=== PATIENT | female | born 1950 | race Caucasian/White ===

== ENCOUNTER 2017-08-17 06:59 | Inpatient (IN) ==
[2017-08-13 17:20] LABS: Appearance,Urine CLEAR; Bacteria,Urine 0 /hpf (0); Bilirubin,Urine NEG (NEG); Color,Urine YELLOW; Glucose,Urine (UA) NEGATIVE (NEG); Leukocyte Esterase,Urine 25 /uL (NEG); Mucus,Urine FEW /hpf (0); Nitrate,Urine NEG (NEG); Protein,Urine NEG (NEG); Specific Gravity,Urine 1.015 (1.000-1.035); Urine Blood NEG mg/dL (<0.03); Urine Hyaline Cast 4 /lpf (0-2); Urine RBC 0 /hpf (0-1); Urine Squamous Epithelial Cell 1 /hpf (0-4); Urine WBC 6 /hpf (0-4); Urobilinogen,Urine NEG (NEG)
[2017-08-13 18:19] LABS: Basophils # (Auto) 0.1 K/mcL (0.0-0.3); Basophils % (Auto) 1.2 % (0.0-2.0); Eosinophils # (Auto) 0.1 K/mcL (0.0-0.7); Eosinophils % (Auto) 2.2 % (0.0-7.0); Granulocytes % (Auto) 59.3 % (38.0-78.0); Lymphocytes # (Auto) 1.6 K/mcL (1.5-4.8); Mean Cell Volume 95.4 fL (80.0-100.0); Mean Corpuscular HGB Conc 33.7 g/dL (31.0-36.0); Mean Corpuscular Hemoglobin 32.1 pg (26.0-34.0); Monocytes # (Auto) 0.3 K/mcL (0.1-0.9); Monocytes % (Auto) 6.3 % (1.0-12.0); Platelet Count 210 K/mcL (140-440); RBC 4.56 M/mcL (4.00-5.20); Red Cell Distribution Width 14.7 % (11.5-14.5)
[2017-08-13 18:26] LABS: Blood Urea Nitrogen 18 mg/dl (8-23)
[~2017-08-17 06:59] MED LIST: ACETAMINOPHEN 500 MG TABLET PO SCH; CELECOXIB 200 MG CAPSULE PO SCH; PREGABALIN 75 MG CAPSULE PO SCH; ceFAZolin 1 GM VIAL IV SCH; oxyCODONE 10 MG TAB.ER.12H PO SCH
[2017-08-17] MEDS ORDERED: 0.9 % SODIUM CHLORIDE 250 ML IV SCH (07:00)
[2017-08-17] MEDS ORDERED: KETOROLAC 30 MG, ROPIVACAINE HCL/PF 49.5 ML, EPINEPHrine 0.5 MG, 0.9 % SODIUM CHLORIDE ... IJ ONE (08:30)
[2017-08-17 08:33] LABS: Appearance,Urine CLEAR; Bilirubin,Urine NEG (NEG); Color,Urine YELLOW; Glucose,Urine (UA) NEGATIVE (NEG); Leukocyte Esterase,Urine NEG /uL (NEG); Nitrate,Urine NEG (NEG); Protein,Urine NEG (NEG); Specific Gravity,Urine 1.014 (1.000-1.035); Urine Blood NEG mg/dL (<0.03); Urobilinogen,Urine NEG (NEG)
[2017-08-17] MEDS ORDERED: ONDANSETRON 4 MG/2 ML VIAL ONE (09:18)
[2017-08-17] MEDS ORDERED: PROPOFOL 200 MG/20 ML VIAL IV ONE (09:18)
[2017-08-17] MEDS ORDERED: LIDOCAINE HCL/PF 100 MG/5 ML SYRINGE IV ONE (09:18)
[2017-08-17] MEDS ORDERED: KETAMINE 10 MG/ML ML ONE (09:18)
[2017-08-17] MEDS ORDERED: MIDAZOLAM 2 MG/2 ML VIAL ONE (09:18)
[2017-08-17] MEDS ORDERED: GLYCOPYRROLATE 0.2 MG/ML VIAL IV ONE (09:18)
[2017-08-17] MEDS ORDERED: GENTAMICIN SULFATE 800 MG/20 ML VIAL IR ONE (10:09)
[2017-08-17] MEDS ORDERED: HYDROmorphone 2 MG/ML SYRINGE IV PRN (10:49)
[2017-08-17] MEDS ORDERED: TRANEXAMIC ACID 1,000 MG/10 ML VIAL IV SCH (10:49)
[2017-08-17] MEDS ORDERED: ACETAMINOPHEN 325 MG TABLET PO PRN (10:49)
[2017-08-17] MEDS ORDERED: MAGNESIUM HYDROXIDE 30 ML ORAL.SUSP PO PRN (10:49)
[2017-08-17] MEDS ORDERED: BISACODYL 10 MG SUPP.RECT PR PRN (10:49)
[2017-08-17] MEDS ORDERED: ONDANSETRON 4 MG/2 ML VIAL IV PRN ×2 (10:49→10:54)
[2017-08-17] MEDS ORDERED: POLYETHYLENE GLYCOL 3350 17 GM PACKET PO PRN (10:49)
[2017-08-17] MEDS ORDERED: BENZOCAINE/MENTHOL 1 LOZENGE PO PRN ×2 (10:49→10:54)
[2017-08-17] MEDS ORDERED: FLEETS ADULT ENEMA PR PRN (10:49)
[2017-08-17] MEDS ORDERED: IPRATROPIUM/ALBUTEROL 3 ML AMPUL.NEB NEB PRN (10:54)
[2017-08-17] MEDS ORDERED: METOPROLOL TARTRATE 5 MG/5 ML VIAL IV PRN (10:54)
[2017-08-17] MEDS ORDERED: METHOCARBAMOL 1,000 MG/10 ML VIAL IV PRN (10:54)
[2017-08-17] MEDS ORDERED: ePHEDrine 50 MG/ML AMPUL IV PRN (10:54)
[2017-08-17] MEDS ORDERED: MEPERIDINE 25 MG/ML SYRINGE IV PRN (10:54)
[2017-08-17] MEDS ORDERED: LACTATED RINGERS 1,000 ML IV SCH (11:00)
[2017-08-17] MEDS: fentaNYL 100 MCG/2 ML VIAL IV PRN ×3 (11:02→11:15)
--- NOTE | 2017-08-17 11:33 | Operative Note ---
DATE OF OPERATION: 08/17/2017 PREOPERATIVE DIAGNOSIS: Left knee degenerative arthritis. POSTOPERATIVE DIAGNOSIS: Left knee degenerative arthritis. PROCEDURE: Left total knee arthroplasty. SURGEON: De Smith MD DREDGE BOAT ENGINEER: Stanley Ledezma PA-C ANESTHESIA: General LMA anesthesia. COMPLICATIONS: None. TOTAL TOURNIQUET TIME: 52 minutes. COMPONENTS: Posterior cruciate retained design with cemented tibia and femoral components along with a 36 mm cemented button. DESCRIPTION OF PROCEDURE: The patient was brought to the operating room and put to sleep with general LMA anesthesia. Once asleep, the patient had the left leg sterilely prepped and draped in the usual sterile fashion after confirming the operative site. Once this was done, we then placed Ioban over the skin and made a midline incision, a mid vastus approach performed. Once done, we then exposed the joint. 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 At this point, we proceeded with a total knee arthroplasty. We converted from a partial knee as planned. We placed two pins above and below the knee. The arrays were placed and registered the center of hip rotation. Intra-articular pins were set and we then registered 30 points on the femur and the tibia. We then removed osteophytes and balanced the knee at 15 degrees of flexion and at 90 degrees. The patient tolerated this well. Once we balanced the knee and set the rotation perfectly for the patient, we then brought the robot in, made our distal cut, made our posterior chamfer cuts, made our anterior and posterior cuts and anterior chamfer cut. We then made our tibial cut after registered and the robot again and changing the saw blade, and removing the bony fragments-removing the remnants of the meniscus and osteophytes posteriorly. We then punched into place the tibial baseplate. Once this was done, we then trialed the components. This fit very nicely with a size 13 poly, both flexion, extension, 0 degrees extension achieved. The knee was stable to varus valgus stress throughout the full range of motion. We cemented into place the tibial baseplate, the femoral component and a 13 poly was inserted and locked. We then prepared the patella measuring 24 mm. This was cut to 14 mm and cemented into place a 36 mm patellar button. This tracked perfectly. We irrigated thoroughly and closed the mid vastus approach with #1 Stratafix times 2 of the sutures and then closed the skin with 2-0 Vicryls and adhesive closure. The patient tolerated this well. Portals were closed with 4-0 nylon and the arrays were removed. The intra-articular pins were removed and final count correct. Sterile bandage was applied. The patient tolerated this well without complication. RBH:mariano Job ID: [id number] Doc ID: [id number] De Smith MD
--- NOTE | 2017-08-17 12:07 | XRay Report ---
CLINICAL INFORMATION: Reason for Exam:Post-Op Total Knee COMPARISON: None. FINDINGS: Total knee prostheses is anatomically aligned. No osseous abnormality. Periarticular gas and soft tissue swelling seen as expected. IMPRESSION: Negative Interpreted and Authenticated by: Bogdan Adorno 08/17/17
[2017-08-17] MEDS: HYDROcodone/APAP 10/325MG TABLET PO PRN ×4 (12:41→23:08)
[2017-08-17] MEDS: KETOROLAC 15 MG/ML VIAL IV SCH ×2 (12:50→17:39)
[2017-08-17] MEDS: 0.45 % SODIUM CHLORIDE 1,000 ML IV SCH (12:50)
[2017-08-17] MEDS: 0.9 % SODIUM CHLORIDE 10 ML SYRINGE IV SCH (13:44)
--- NOTE | 2017-08-17 16:01 | Brief Operative Note ---
Date of procedure: 08/17/17 Pre-op diagnosis: left knee djd medial Post-op diagnosis: same Procedure: left tka with eduin robot Grafts/Implants: Yes Anesthesia: MIGUELANGELA Surgeon: De Smith Powder Room Attendant: Stanley Ledezma Estimated blood loss (cc): 30 Tourniquet Time (Minutes): 50 Specimens Removed/Pathology: none sent Condition: stable Disposition: PACU
[2017-08-17] MEDS: ceFAZolin 1 GM VIAL IV SCH (18:08)
[2017-08-17] MEDS: LABETALOL 100 MG TABLET PO SCH (19:25)
[2017-08-17] MEDS: DOCUSATE SODIUM 100 MG CAPSULE PO SCH (19:26)
[2017-08-17] MEDS: ASPIRIN 325 MG ENTERIC COATED TABLET PO SCH (19:26)
[2017-08-17] MEDS: amLODIPine 5 MG TABLET PO SCH (19:26)
[2017-08-17] MEDS ORDERED: SENNOSIDES 1 TABLET PO SCH (21:00)
[2017-08-17] MEDS ORDERED: TEMAZEPAM 15 MG CAPSULE PO PRN (21:00)
[2017-08-18] MEDS: 0.9 % SODIUM CHLORIDE 10 ML SYRINGE IV SCH ×2 (00:38→06:06)
[2017-08-18] MEDS: KETOROLAC 15 MG/ML VIAL IV SCH ×2 (00:41→06:07)
[2017-08-18] MEDS: ceFAZolin 1 GM VIAL IV SCH (01:00)
[2017-08-18] MEDS: 0.45 % SODIUM CHLORIDE 1,000 ML IV SCH (01:51)
[2017-08-18] MEDS: HYDROcodone/APAP 10/325MG TABLET PO PRN ×2 (03:37→09:18)
--- NOTE | 2017-08-18 07:48 | Orthopedic Progress Note ---
Subjective Patient information: Note initiated : 08/18/17 at 7:47 am Service Date, if different from initiated Date: [] Patient: Lia Lucas 66 y/o F admitted on 08/17/17 for Left Uni Medial Romario Knee vs Total Knee Arthroplas. Chief Complaint: [Pt is stable this morning on post operative day 1 without any significant concerns or complaints. Patients vital signs have remained stable. Patients dressing is dry and exhibits a grossly intact neurovascular and neuromotor exam. Patients 10 point ROS is otherwise negative. ] Objective Vital signs: Vital Signs Temp Pulse Resp BP BP Pulse Ox 08/18/17 03:51 97.3 F 62 18 143/79 95 08/18/17 03:00 90 08/17/17 23:30 98.0 F 50 L 12 136/66 98 08/17/17 23:26 94 08/17/17 23:25 94 08/17/17 19:04 97.4 F 52 L 12 116/65 94 08/17/17 15:19 97.9 F 18 125/74 91 08/17/17 14:00 126/62 90 08/17/17 13:55 94 08/17/17 13:30 144/77 95 08/17/17 13:00 136/73 94 08/17/17 12:45 126/71 96 08/17/17 12:30 140/78 95 08/17/17 12:15 96.4 F L 16 140/71 91 08/17/17 12:09 92 08/17/17 12:00 58 L 15 164/99 96 08/17/17 11:45 14 L 15 168/87 96 08/17/17 11:30 15 L 15 168/87 96 08/17/17 11:20 58 L 14 153/83 96 08/17/17 11:15 56 L 14 171/62 96 08/17/17 11:12 97.8 F 58 L 13 155/53 96 Intake and Output 08/17/17 08/18/17 08/18/17 21:59 05:59 13:59 Intake Total 540 / 540 800 / 800 Output Total 450 / 450 1175 / 1175 375 / 375 Balance 90 / 90 -375 / -375 -375 / -375 Intake: Oral 540 / 540 800 / 800 Output: Void Amount 450 / 450 1175 / 1175 375 / 375 Straight Cath #2 450 / 450 Other: Meal Dinner Percent of Meal Consumed 75% Feeding Ability Independent Weight 188 lb 8 oz Intake & Output: Intake & Output 08/17/17 08/18/17 08/18/17 21:59 05:59 13:59 Intake Total 540 / 540 800 / 800 Output Total 450 / 450 1175 / 1175 375 / 375 Balance 90 / 90 -375 / -375 -375 / -375 Weight 188 lb 8 oz Intake: Oral 540 / 540 800 / 800 Output: Void Amount 450 / 450 1175 / 1175 375 / 375 Straight Cath #2 450 / 450 Other: Meal Dinner Percent of Meal Consumed 75% Feeding Ability Independent Incision: Yes healing Incision clean and dry: Yes Dressing: Yes clean, Yes dry Weight bearing status: full Neurological exam IM: Yes motor sensory intact, Yes neurovascular intact Extremities exam IM: Yes Foot pink and warm, Yes neurovascular intact - Labs CBC & BMP: 08/18/17 05:00 08/13/17 15:50 Labs: Orthopedic Labs 08/13/17 15:50 PT 13.4 INR 1.0 08/18/17 08/13/17 05:00 15:50 Hgb 14.7 Hct 36.9 43.5 Assessment and Plan (1) Hx of total knee arthroplasty Patient has been educated regarding wound care and dressings, follow up recommendations, and medication use. We will f/u with the patient within 2-3 weeks for wound check. Status: Acute
--- NOTE | 2017-08-18 07:51 | Discharge Summary ---
Ortho Discharge - TKA - Patient Instructions Diet: Regular Diet Activity: activity as tolerated, weight bearing as tolerated Total Knee Protocol: For Total Knee: Start ROM DUANE with stationary bike or rocking chair. Work on gaining full extension of knee. Posterior dislocation precautions provided. Hip abductor strengthening and gait training instructions provided. Apply Cryocuff as instructed. Dressing Care: May shower in 2 days Patient Education: Total Knee Replacement (DC) Additional Instructions: Discharge Instructions: Do the exercises at home that physical therapy gave you. [facility] on ThursdayAugust 19 at 800 am. Please arrive 15 minutes early for paperwork. Your orders have been faxed to them. Take your photo ID, insurance cards, and current medication list with you to your first physical therapy appointment. Wear comfortable clothing for your physical therapy. Take your prescription to pick up man any medication or equipment (such as walker, crutches, toilet riser or C.P.M.) Weight bearing as tolerated. You have Dermabond (a dressing with a mesh-like appearance), leave open to air. You may start showering on post op day #2. The Dermabond dressing can get wet, do not scrub dressing. Pat dry. To avoid constipation while taking any narcotic pain medication, take an over the counter stool softener/laxative. Use your Cryocuff or ice packs as directed, on for 20 minutes at a time throughout the day. This and elevation will help with pain and swelling. Call your physician for fevers above 100.5 or pain not controlled by medication. Your prescriptions are with your discharge information. Some medications were electronically transmitted to your pharmacy of choice. CPM for home use. - Problem Maintenance (1) Hx of total knee arthroplasty Status: Acute - Follow Up Plan Follow Up Appointments: De Smith MD [Physician] - 08/28/17 10:40 am (with Stanley) Disposition: Home, Self-Care Prognosis: Good Rehab Potential: Good I certify that the patient requires SNF services: No Overall status at discharge: patient is progressing back to baseline - Orders For Discharge Prescriptions: Aspirin [Ecotrin] 325 mg PO BID #60 Docusate Sodium [Colace] 100 mg PO BID #60 capsule HYDROcodone/APAP 10/325MG [Breese 10/325Mg] 1 - 2 tab PO Q4HP PRN #75 tablet PRN Reason: Pain
[2017-08-18] MEDS ORDERED: LISINOPRIL 20 MG TABLET PO SCH (09:00)
[2017-08-18] MEDS ORDERED: NON FORMULARY MEDICATION 1 DOSE MISCELL (Cyanocobalamin/Folic Acid [Vitamin B12-Folic Acid PO SCH (09:00)
[2017-08-18] MEDS ORDERED: ASCORBIC ACID 500 MG TABLET PO SCH (09:00)
[2017-08-18] MEDS ORDERED: FOLIC ACID/VITAMIN B COMP W-C 1 TAB TABLET PO SCH (09:00)
[2017-08-18] MEDS: amLODIPine 5 MG TABLET PO SCH (09:17)
[2017-08-18] MEDS: LABETALOL 100 MG TABLET PO SCH (09:17)
[2017-08-18] MEDS: ASPIRIN 325 MG ENTERIC COATED TABLET PO SCH (09:17)
[2017-08-18] MEDS: DOCUSATE SODIUM 100 MG CAPSULE PO SCH (09:17)
== END 2017-08-18 12:00 | disposition home or self-care (01) | DRG 470 ==
LOC: SUR 06:59 → MEDSUR 12:09
PROVIDERS: ADMIT Orthopaedic Surgery; ATTEND Orthopaedic Surgery